=== PATIENT | female | born 1935 | race Caucasian/White ===

== ENCOUNTER 2018-08-27 10:42 | Emergency (ER) | payer OTHER, MEDICAID ==
[~2018-08-27] VITALS: Ht 167.6 cm; Wt 72.6 kg
[2018-08-27] MEDS ORDERED: SODIUM CHLORIDE 0.9% 500 ML IV ONE (11:07)
[2018-08-27 12:16] LABS: Basophils # (auto) 0 uL; Basophils % (auto) 0.8 % (0.0-2.0); Eosinophils # (auto) 0 uL; Hematocrit 41.6 % (36.0-46.0); Hemoglobin 14.1 g/dL (12.2-16.2); Lymphocytes # (auto) 1.2 uL; Mean Corpuscular Hemoglobin 33.3 pg (28.0-32.0); Mean Corpuscular Hgb Conc. 33.8 g/dL (32.0-36.0); Mean Corpuscular Volume 98.4 fL (80.0-100.0); Monocytes # (auto) 0.7 uL; Monocytes % (auto) 15.7 % (0.0-12.0); Neutrophils # (auto) 2.3 uL; Neutrophils % (auto) 54.5 % (37.0-80.0); Nucleated Red Blood Cells % 0.1 %; Platelet Count (auto) 231 10^3/uL (140-450); Red Blood Cells 4.22 10^6/uL (4.0-5.20); Red Cell Distribution Width 14.5 % (11.8-14.3); White Blood Cell 4.3 10^3/uL (4.4-10.8)
[2018-08-27 12:32] LABS: INR 0.97 (0.9-1.15); Partial Thromboplastin Time 39.2 sec (23.78-33.04); Prothrombin Time 10.4 sec (9.27-12.13)
[2018-08-27 13:03] LABS: Albumin 3.7 g/dL (3.4-5.0); Anion Gap 3 (5-15); Blood Urea Nitrogen 24 mg/dL (7-18); Calcium 8.4 mg/dL (8.5-10.1); Carbon Dioxide 31 mmol/L (21-32); Chloride 101 mmol/L (98-107); Glucose 122 mg/dL (74-106); Magnesium 2.4 mg/dL (1.6-2.6); Potassium 4.4 mmol/L (3.5-5.1); Sodium 135 mmol/L (136-145)
[2018-08-27 13:09] LABS: Alanine Aminotransferase 10 U/L (13-56); Alkaline Phosphatase 71 U/L (45-117); Aspartate Aminotransferase 16 U/L (15-37); BUN/Creatinine Ratio 22.6; Bilirubin, Total 0.6 mg/dL (0.2-1.0); GFR African American 64 mL/min; GFR Non-African American 52 mL/min; Total Protein 7.1 g/dL (6.4-8.2)
[2018-08-27 14:09] LABS: Urine Bacteria MANY /hpf (None Seen); Urine Blood Negative /uL (Negative); Urine Mucus FEW (None Seen); Urine Specific Gravity 1.016 (1.001-1.035); Urine WBC 88 /hpf (0 - 5)
[2018-08-27 14:17] VITALS: BP 198/101
== END 2018-08-27 15:13 | disposition home or self-care (01) ==
LOC: ER 10:42
DX: N39.0 Urinary tract infection, site not specified (principal); E11.9 Type 2 diabetes mellitus without complications; E78.5 Hyperlipidemia, unspecified; Z86.73 Personal history of transient ischemic attack (TIA), and cerebral infarction without residual deficits
CPT/HCPCS: 36415; 70450; 71045; 80053; 81001; 83735; 84484; 85025; 85610; 85730; 94761; 96360

== ENCOUNTER 2018-11-05 09:30 | Inpatient (IN) | payer OTHER, MEDICAID | END 2018-11-06 15:30 | disposition home health service (06) | LOC: ER 09:30 → TELE 17:47 → TELE-CENTR 20:42 | DX: G93.41 Metabolic encephalopathy (principal); N39.0 Urinary tract infection, site not specified; I16.0 Hypertensive urgency ==